=== PATIENT | female | born 1995 | race Caucasian/White ===

== ENCOUNTER 2024-04-09 16:33 | Emergency (ER) | payer BC, SELFPAY ==
--- NOTE | ~2024-04-09 | XR_ITS ---
EXAMINATION: XR chest 2V DATE: 04/09/2024 16:57 INDICATION: Shortness of breath. Chest pain. TECHNIQUE: Frontal and lateral views of the chest were obtained. COMPARISON: None. FINDINGS: There are mild airspace opacities at the lung bases. No pleural effusion or pneumothorax. T he heart size is normal. IMPRESSION: 1. Mild airspace opacities at the lung bases, consistent with atelectasis or less likely pneumonia. Reviewed, dictated and finalized at location A. IMPRESSION: 1. Mild airspace opacities at the lung bases, consistent with atelectasis or le ss likely pneumonia.
--- NOTE | 2024-04-09 16:35 | ECG_ITS ---
Test Date: 2024-04-09 16:42:28 Measurements Intervals [place] Rate: 88 P: 38 [place]: 132 QRS: 26 QRSD: 91 T: 33 QT: 365 QTc: 443 Interpretive Statements SINUS RHYTHM INCOMPLETE RIGHT BUNDLE BRANCH BLOCK BASELINE ARTIFACT- I, II, III, AVR, AVL, AVF, V1, V6 BORDERLINE ECG No previous ECG available for comparison Electronically Signed On 04-09-2024 19:59:02 CDT by Humble Thomson D.O.
[2024-04-09 16:52] VITALS: BP 133/76; PULSE 92; RESP 20; TEMP 36.4; O2SAT 98
[2024-04-09 16:56] LABS: Basophils Absolute Auto 0.1 K/mm3 (0.0-0.1); Basophils Percent Auto 1.1 % (0.2-1.2); Eosinophils Absolute Auto 0.2 K/mm3 (0-0.3); Hemoglobin 12.9 g/dL (12.0-15.0); Immature Granulocyte Absolute 0.03 K/mm3 (0.00-0.031); Immature Granulocyte Percent A 0.3 % (0-0.5); Lymphocytes Absolute Auto 2.45 K/mm3 (0.9-3.2); Mean Corpuscular HGB Conc 32.3 g/dl (32-36); Mean Corpuscular Volume 77.7 fl (80-100); Monocytes Absolute Auto 0.6 K/mm3 (0.1-0.6); Neutrophils Absolute Auto 6.4 K/mm3 (1.3-6.7); Neutrophils Percent Auto 65.6 % (45.5-73.1); Platelet Count Result 294 k/mm3 (150-375); Red Blood Count 5.15 M/mm3 (4.2-5.4); Red Cell Distribution Width 14.6 % (11.5-14.5); White Blood Count 9.8 K/mm3 (4.5-10.0)
[2024-04-09 17:06] LABS: Prothrombin Time 13.9 Seconds (11.1-14.7)
[2024-04-09 17:07] LABS: Partial Thromboplastin Time 33.7 Seconds (22.3-36.8)
[2024-04-09 17:09] LABS: Alanine Aminotransferase 16 U/L (6-35); Albumin Level 4.5 g/dL (3.5-5.1); Alkaline Phosphatase 90 U/L (38-126); Anion Gap 9 mmol/L (4-12); Aspartate Amino Transferase 19 U/L (14-36); Bilirubin,Total 0.4 mg/dL (0.2-1.3); Blood Urea Nitrogen 11 mg/dL (7-17); Calcium 9.2 mg/dL (8.4-10.2); Carbon Dioxide 28 mmol/L (22-30); Chloride 97 mmol/L (98-107); Estimated Glomerular Filt Rate > 60; Glucose 105 mg/dL (65-110); Lipase 68 U/L (23-300); Sodium 134 mmol/L (137-145)
[2024-04-09 17:20] LABS: Troponin I < 0.012 ng/mL (0.000-0.034)
[2024-04-09 19:00] VITALS: BP 135/89; PULSE 93; RESP 19; O2SAT 99
[2024-04-09] MEDS: KETOROLAC 30 MG/ML VIAL (*BKC) IM (19:41)
[2024-04-09 19:50] VITALS: BP 130/85; PULSE 86; RESP 16; O2SAT 99
--- NOTE | 2024-04-09 21:33 | ED.SOB ---
HPI - SOB/Dyspnea General Chief Complaint: Shortness of Breath/Dyspnea Stated Complaint: sob Time Seen by Provider: 04/09/24 19:20 History of Present Illness HPI Narrative: Patient presents with some right-sided pain worse with certain movements including picking up her daughter, and with taking deep breaths, since yesterday, has not had symptoms like this in the past, no cough, no fevers or chills, no history of blood clots, no lower extremity swelling or pain Related Data Allergies Allergy/AdvReac Type Severity Reaction Status Date / Time Sulfa (Sulfonamide Allergy Hives Verified 04/09/24 17:20 Antibiotics) Review of Systems Review of Systems: All systems reviewed & are unremarkable except as noted in HPI and below Exam Narrative: EXAMINATION OF ORGAN SYSTEMS/BODY AREAS: Constitutional: Vital signs per nursing GENERAL:[No acute distress, non-toxic appearing.] HEAD: Normal with no signs of head trauma. EYES: EOMI, conjunctiva normal ENT: Hearing grossly intact LUNGS: Nonlabored breathing. Clear to auscultation bilaterally HEART: [Regular rate and rhythm], no chest wall tenderness ABD: [Soft], [nontender to palpation] EXT: Normal range of motion SKIN: [No rashes or lesions.] NEURO: [Alert and oriented x 3. No gross focal sensory or strength deficits.] PSYCH: Normal affect Course Vital Signs Vital signs: Vital Signs Temperature 97.6 F 04/09/24 16:52 Pulse Rate 92 04/09/24 16:52 Respiratory Rate 20 04/09/24 16:52 Blood Pressure 133/76 04/09/24 16:52 Pulse Oximetry 98 04/09/24 16:52 Temperature 97.6 F 04/09/24 16:52 Pulse Rate 86 04/09/24 19:50 Respiratory Rate 16 04/09/24 19:50 Blood Pressure 130/85 04/09/24 19:50 Pulse Oximetry 99 04/09/24 19:50 Oxygen Delivery Room Air 04/09/24 19:47 MDM - SOB/Dyspnea MDM Narrative Medical decision making narrative: ED COURSE AND MEDICAL DECISION MAKIN-year-old female presenting with chest pain to right side, worse with certain movements, denies any recent trauma, states that she had been glamping this weekend. EKG done in triage negative for acute ischemic changes. Cardiac workup is initiated. EKG: Performed in triage and interpreted by me. Normal sinus rhythm. Rate 88. Normal axis. VT normal. QRS duration normal. QTc normal. No pathologic Q waves. No ST segment elevation or depression to suggest acute ischemia. HEART score is 0 with no acute ischemic changes on EKG and negative troponin making ACS unlikely. [place] low risk with negative PERC making PE unlikely. Presentation not consistent with dissection or aneurysm without radiation of pain or pulse deficits. CXR negative for mediastinal widening. No abdominal pain or signs of sepsis that would be concerning for esophageal perforation or mediastinitis. No cardiomegaly or JVD to suggest pericardial effusion/tamponade. Toradol given with some mild improvement. On repeat evaluation just prior to discharge, the patient is no acute distress. I had a long discussion with the patient and with shared decision making, she is comfortable with outpatient management. She was given clear return instructions by myself in person as well as on discharge paperwork. Procedures: Pulse oximetry interpretation - not hypoxic. EKG interpretation. Review of medical records. Lab Data 04/09/24 16:51 04/09/24 16:51 Labs: Lab Results 04/09/24 Range/Units 16:51 WBC 9.8 (4.5-10.0) K/mm3 RBC 5.15 (4.2-5.4) M/mm3 Hgb 12.9 (12.0-15.0) g/dL Hct 40.0 (37.0-47.0) % MCV 77.7 L (80-100) fl MCH 25.0 L (26-34) pg MCHC 32.3 (32-36) g/dl RDW 14.6 H (11.5-14.5) % Plt Count 294 (150-375) k/mm3 MPV 10.0 (7.4-10.4) fl Immature Gran % (Auto) 0.3 (0-0.5) % Neut % (Auto) 65.6 (45.5-73.1) % Lymph % (Auto) 25.0 (18.3-44.2) % [place] % (Auto) 6.0 (2.6-8.5) % Eos % (Auto) 2.0 (0-4.4) % Baso % (Auto) 1.1 (0.2-1.2) % Lymph # (Auto
== END 2024-04-09 20:08 | disposition home or self-care (01) ==
LOC: ANHED 19:49
PROVIDERS: Emergency Medicine; Emergency Provider Emergency Medicine; PCP Physician Assistant
DX: R07.89 Other chest pain (principal)
CPT/HCPCS: 36415; 71046; 80053; 83690; 84484; 85025; 85610; 85730; 93005; 96372; 99284; J1885